=== PATIENT | female | born 1960 | race Asian ===

== ENCOUNTER 2019-05-07 02:13 | Emergency (ER) | payer OTHER ==
[~2019-05-07] VITALS: Ht 157.5 cm; Wt 59.5 kg
[2019-05-07 02:19] VITALS: BP 135/76
--- NOTE | 2019-05-07 02:45 | NUR ---
59 Y/O FEMALE PRESENTS TO ED, C/O OF GENERAL BODY RASH. PT STATES HAVING RASH "A COUPLE OF HOURS" PASTRY COOK APPRENTICE. PT DENIES ANY ALLERGIES. RASH PRESENTS ON ARMS AND TORSO. C/O OF SEVERE ITCHING. NO SKIN BREAKDOWN. DENIES ANY SOB. PT VSS. ERMD AWARE. WILL CONTINUE TO MONITOR.
--- NOTE | 2019-05-07 03:30 | NUR ---
PT AWAKE, LAYING ON BED. C/O MILD ITCHING ON ARMS AND TORSO. PT VSS. [facility]ONT CONTINUE TO MONITOR.
[2019-05-07] MEDS: methylPREDNISolone SS 125 MG in WATER STERILE 2 ML IM ONE (03:34)
[2019-05-07] MEDS: FAMOTIDINE 20 MG TAB PO ONE (03:35)
[2019-05-07] MEDS: diphenhydrAMINE 50 MG CAP PO ONE (03:36)
[2019-05-07 04:35] VITALS: BP 129/66
--- NOTE | 2019-05-07 04:42 | NUR ---
PT DISCHARGED WITH PAPERWORK. RX BENADRYL, PEDNISONE. EDUCATED PT REGARDING MEDICATION AND S/E. EDUCATED PT REGARDING D/C DIAGNOSIS AND INSTRUCTIONS. PT VERBALIZED UNDERSTANDING OF TEACHING. TOLD PT TO FOLLOW UP WITH PCP AND WHEN TO RETURN TO ED. PT VSS. DENIES ANY ITCHING. NO SOB. ALL QUESTIONS ANSWERED.
== END 2019-05-07 04:35 | disposition home or self-care (01) ==
LOC: MED 02:13
DX: R21 Rash and other nonspecific skin eruption (principal)
CPT/HCPCS: 96372; 99283; J2930; Q0163

== ENCOUNTER 2019-11-17 09:31 | Inpatient (IN) | payer OTHER ==
[~2019-11-17] VITALS: Ht 157.5 cm; Wt 54.0 kg
[2019-11-17 09:32] VITALS: BP 127/72
[2019-11-17 10:35] LABS: BASOPHILS # (AUTO) 0.1 K/uL (0.00-0.22); BASOPHILS % (AUTO) 1.6 % (0.0-2.0); EOSINOPHILS # (AUTO) 0.3 K/uL (0-0.4); EOSINOPHILS % (AUTO) 7.7 % (0.0-4.0); HEMATOCRIT 39.6 % (36-48); HEMOGLOBIN 13.2 g/dL (12.0-16.0); LYMPHOCYTES # (AUTO) 1.1 K/uL (2.5-16.5); LYMPHOCYTES % (AUTO) 27.4 % (20.5-51.1); MEAN CORPUSCULAR HEMOGLOBIN 30 pg (27-31); MEAN CORPUSCULAR HGB CONC 33 g/dL (33-37); MEAN CORPUSCULAR VOLUME 91.4 fL (80-94); MONOCYTES # (AUTO) 0.4 K/uL (0.8-1.0); MONOCYTES % (AUTO) 11.2 % (1.7-9.3); NEUTROPHILS # (AUTO) 2.1 K/uL (1.8-7.7); NEUTROPHILS % (AUTO) 52.1 % (42.2-75.2); PLATELET COUNT (AUTO) 179 K/uL (140-450); RED BLOOD CELL COUNT(AUTO) 4.34 MIL/uL (4.20-5.40); RED CELL DISTRIBUTION WIDTH 13.9 % (11.6-13.7)
[2019-11-17 10:49] LABS: ALBUMIN 3.7 g/dL (3.4-5.0); ANION GAP 12.9 (8-16); CARBON DIOXIDE 28.6 mmol/L (21-32); CREATININE 0.7 mg/dL (0.6-1.3); POTASSIUM 3.5 mmol/L (3.5-5.1); TOTAL BILIRUBIN 0.4 mg/dL (0.0-1.0)
[2019-11-17] MEDS ORDERED: MORPHINE SULFATE 2 MG/ML SYR IVP ONE (11:10)
[2019-11-17] MEDS ORDERED: NITROGLYCERIN 2% 1 GM PKT TP ONE (11:10)
[2019-11-17] MEDS ORDERED: ASPIRIN 81 MG TAB.CHEW PO ONE (11:10)
[2019-11-17] MEDS ORDERED: ACETAMINOPHEN 325 MG TAB PO PRN (11:35)
[2019-11-17] MEDS ORDERED: HEPARIN PER PHARMACY MC PRN (11:35)
[2019-11-17] MEDS ORDERED: ONDANSETRON 4 MG/2 ML VIAL IVP PRN (11:35)
[2019-11-17] MEDS ORDERED: MORPHINE SULFATE 4 MG/ML SYR IVP PRN (11:35)
[2019-11-17] MEDS ORDERED: hePARIN / DEXT 5% PREMIX 250 ML IV SCH ×2 (11:35→12:05)
[2019-11-17] MEDS ORDERED: ALBUTEROL 0.083% 2.5 MG/3 ML NEBU INH PRN (11:35)
[2019-11-17] MEDS ORDERED: HYDROcodone/APAP 5/325 MG 1 TAB TAB PO PRN (11:35)
[2019-11-17 11:41] LABS: PROTHROMBIN TIME 10.4 secs (10.8-13.4)
[2019-11-17] MEDS ORDERED: CALC500T19 PO (11:42)
[2019-11-17] MEDS ORDERED: LOSA50TA66 PO (11:43)
[2019-11-17] MEDS ORDERED: LOSA25TA43 PO (11:43)
[2019-11-17] MEDS ORDERED: [UNRECOGNIZED DRUG - CODE] PO (11:46)
[2019-11-17 12:23] VITALS: BP 129/87
[2019-11-17] MEDS ORDERED: KCL 20 MEQ/WATER INJ PREMIX 200 ML IV SCH (12:30)
[2019-11-17] MEDS ORDERED: POTASSIUM CHLORIDE 40 MEQ, LIDOCAINE MPF 1% 25 MG in NACL 0.9% 250 ML IV SCH (14:30)
[2019-11-17 16:00] VITALS: BP 107/73
[2019-11-17 20:00] VITALS: BP 97/60
[2019-11-18] VITALS: BP 120/76
[2019-11-18 04:00] VITALS: BP 128/76
[2019-11-18 07:41] LABS: MAGNESIUM 1.9 mg/dL (1.8-2.4); PHOSPHORUS 3.1 mg/dL (2.5-4.9)
[2019-11-18 07:42] LABS: CARBON DIOXIDE 29.2 mmol/L (21-32); CREATININE 0.7 mg/dL (0.6-1.3); POTASSIUM 4.2 mmol/L (3.5-5.1)
[2019-11-18 07:47] LABS: BASOPHILS % (AUTO) 1.1 % (0.0-2.0); EOSINOPHILS # (AUTO) 0.3 K/uL (0-0.4); EOSINOPHILS % (AUTO) 6.7 % (0.0-4.0); HEMATOCRIT 38.9 % (36-48); HEMOGLOBIN 12.8 g/dL (12.0-16.0); LYMPHOCYTES # (AUTO) 1.2 K/uL (2.5-16.5); LYMPHOCYTES % (AUTO) 29.9 % (20.5-51.1); MEAN CORPUSCULAR HEMOGLOBIN 30 pg (27-31); MEAN CORPUSCULAR HGB CONC 33 g/dL (33-37); MEAN CORPUSCULAR VOLUME 91.9 fL (80-94); MONOCYTES # (AUTO) 0.4 K/uL (0.8-1.0); MONOCYTES % (AUTO) 9.2 % (1.7-9.3); NEUTROPHILS # (AUTO) 2.2 K/uL (1.8-7.7); NEUTROPHILS % (AUTO) 53.1 % (42.2-75.2); PLATELET COUNT (AUTO) 177 K/uL (140-450); RED BLOOD CELL COUNT(AUTO) 4.24 MIL/uL (4.20-5.40); WHITE BLOOD COUNT (AUTO) 4.1 K/uL (4.8-10.8)
[2019-11-18 07:52] VITALS: BP 128/70
[2019-11-18] MEDS ORDERED: LOSARTAN 50 MG TAB PO SCH (09:00)
[2019-11-18] MEDS ORDERED: ATORVASTATIN 20 MG TAB PO SCH (09:00)
[2019-11-18] MEDS ORDERED: ASPIRIN 81 MG TAB.CHEW PO SCH (09:00)
[2019-11-18 11:54] VITALS: BP 143/71
[2019-11-18] MEDS ORDERED: INFLUENZA VACCINE QUAD 0.5 ML SYR IMVAC PRN (13:15)
== END 2019-11-18 14:00 | disposition home or self-care (01) | DRG 190 ==
LOC: MED 09:31 → MTU 11:31
PROVIDERS: ADMIT Internal Medicine Pulmonary Disease; ATTEND Internal Medicine Pulmonary Disease
DX: I21.A1 Myocardial infarction type 2 (principal); I11.9 Hypertensive heart disease without heart failure; E78.00 Pure hypercholesterolemia, unspecified; E78.5 Hyperlipidemia, unspecified; Z79.899 Other long term (current) drug therapy; Z23 Encounter for immunization
CPT/HCPCS: 36415; 71045; 80048; 80053; 83735; 83880; 84100; 84484; 85025; 85610; 85730; 87081; 93005; 96374; 99285; J1644; J2001; J2270; J3480; J7030; Q0092

== ENCOUNTER 2020-06-26 06:40 | Emergency (ER) | payer OTHER ==
[~2020-06-26] VITALS: Ht 157.5 cm; Wt 59.0 kg
[~2020-06-26 06:40] MED LIST: CALC500T19 PO; LOSA50TA66 PO; [UNRECOGNIZED DRUG - CODE] PO
[2020-06-26 06:46] VITALS: BP 169/89
[2020-06-26 07:26] VITALS: BP 169/89
== END 2020-06-26 07:27 | disposition home or self-care (01) ==
LOC: MED 06:40
DX: B02.9 Zoster without complications (principal); I10 Essential (primary) hypertension; I51.89 Other ill-defined heart diseases; Z79.899 Other long term (current) drug therapy
CPT/HCPCS: 81002; 81025; 99283

== ENCOUNTER 2020-07-16 06:30 | Emergency (ER) | payer OTHER ==
[~2020-07-16] VITALS: Ht 157.5 cm; Wt 59.0 kg
[2020-07-16 06:39] VITALS: BP 179/102
--- NOTE | 2020-07-16 06:44 | NUR ---
PT TKAEN TO BED 11 WITH STEADY GAIT
--- NOTE | 2020-07-16 06:50 | NUR ---
60 y/o female presented to the ED c/o itching since 0200 this morning, generalized rash noted throughout her body, pt denies difficulty breathing, pt denies N/V, pt denies diarrhea and fever. pt is not in any acute distress at this time. PT DENIES PAIN. PMH: ELEVATED CHOLESTEROL, SHINGLES 2 WKS AGO, HTN NKA
--- NOTE | 2020-07-16 06:55 | NUR ---
JULI TSANG MADE AWARE OF GENERLIZED RASH
[2020-07-16] MEDS ORDERED: diphenhydrAMINE 50 MG CAP PO ONE (07:05)
--- NOTE | 2020-07-16 07:06 | NUR ---
JULI TSANG AT BEDSIDE FOR MEDICAL EVALUATION
[2020-07-16 07:44] VITALS: BP 179/102
--- NOTE | 2020-07-16 07:46 | NUR ---
Patient discharged with v/s stable. Written and verbal after care instructions given and explained. Patient alert, oriented and verbalized understanding of instructions. Ambulatory with steady gait. All questions addressed prior to discharge. ID band removed. Patient advised to follow up with PMD. Rx of PREDNISONE AND BENADRYL given. Patient educated on indication of medication including possible reaction and side effects. Opportunity to ask questions provided and answered.
== END 2020-07-16 07:46 | disposition home or self-care (01) ==
LOC: MED 06:30
DX: R21 Rash and other nonspecific skin eruption (principal); I10 Essential (primary) hypertension; I51.89 Other ill-defined heart diseases; Z79.899 Other long term (current) drug therapy
CPT/HCPCS: 99282; Q0163; C1758

== ENCOUNTER 2020-07-19 03:39 | Observation (INO) | payer OTHER ==
[~2020-07-19] VITALS: Ht 157.5 cm; Wt 59.0 kg
[2020-07-19 03:46] VITALS: BP 152/69
[2020-07-19] MEDS ORDERED: ASPIRIN 81 MG TAB.CHEW PO ONE (04:05)
[2020-07-19] MEDS ORDERED: ALBU0.0912 IH (05:33)
[2020-07-19] MEDS ORDERED: ACET-8386 PO (05:33)
[2020-07-19] MEDS ORDERED: ATOR40TA PO (05:33)
[2020-07-19] MEDS ORDERED: MELA5SGL PO (05:33)
[2020-07-19] MEDS ORDERED: DIPH25CA86 PO (05:33)
[2020-07-19] MEDS ORDERED: [UNRECOGNIZED DRUG - CODE] PO (05:33)
[2020-07-19] MEDS ORDERED: GABA300C PO (05:33)
[2020-07-19 05:36] LABS: BASOPHILS % (AUTO) 0.2 % (0.0-2.0); EOSINOPHILS % (AUTO) 0.5 % (0.0-4.0); HEMATOCRIT 40.3 % (36-48); HEMOGLOBIN 13.1 g/dL (12.0-16.0); MEAN CORPUSCULAR HEMOGLOBIN 31 pg (27-31); MEAN CORPUSCULAR HGB CONC 33 g/dL (33-37); MEAN CORPUSCULAR VOLUME 95.7 fL (80-94); MONOCYTES # (AUTO) 0.7 K/uL (0.8-1.0); MONOCYTES % (AUTO) 9.6 % (1.7-9.3); NEUTROPHILS # (AUTO) 4.1 K/uL (1.8-7.7); NEUTROPHILS % (AUTO) 60.7 % (42.2-75.2); PLATELET COUNT (AUTO) 197 K/uL (140-450); RED BLOOD CELL COUNT(AUTO) 4.21 MIL/uL (4.20-5.40); RED CELL DISTRIBUTION WIDTH 15.6 % (11.6-13.7); WHITE BLOOD COUNT (AUTO) 6.8 K/uL (4.8-10.8)
[2020-07-19 06:00] LABS: ANION GAP 11.9 (8-16); CARBON DIOXIDE 30.3 mmol/L (21-32); CREATININE 0.8 mg/dL (0.6-1.3); POTASSIUM 4.2 mmol/L (3.5-5.1)
[2020-07-19] MEDS ORDERED: HYDROcodone/APAP 5/325 MG 1 TAB TAB PO PRN (12:45)
[2020-07-19] MEDS ORDERED: ACETAMINOPHEN 325 MG TAB PO PRN (12:45)
[2020-07-19] MEDS ORDERED: ZOLPIDEM 5 MG TAB PO PRN (12:45)
[2020-07-19] MEDS ORDERED: KCL 20 MEQ/WATER INJ PREMIX 200 ML IV PRN (12:45)
[2020-07-19] MEDS ORDERED: MAG SULF 2000 MG/WATER PREMIX 50 ML IV PRN (12:45)
[2020-07-19] MEDS ORDERED: MAGNESIUM OXIDE 400 MG TAB PO PRN (12:45)
[2020-07-19] MEDS ORDERED: ONDANSETRON 4 MG/2 ML VIAL IVP PRN (12:45)
[2020-07-19] MEDS ORDERED: LORazepam 1 MG TAB PO PRN (12:45)
[2020-07-19] MEDS: ALBUTEROL SULFATE/IPRATROPIU 3 ML SOL IH SCH (14:03)
[2020-07-19] MEDS: LOSARTAN 50 MG TAB PO SCH ×2 (18:36→20:03)
[2020-07-19 20:13] VITALS: BP 146/89
[2020-07-20 00:30] VITALS: BP 139/87
[2020-07-20 04:15] VITALS: BP 127/82
[2020-07-20 06:47] LABS: BASOPHILS % (AUTO) 0.4 % (0.0-2.0); EOSINOPHILS # (AUTO) 0.2 K/uL (0-0.4); EOSINOPHILS % (AUTO) 3.8 % (0.0-4.0); HEMATOCRIT 42.6 % (36-48); HEMOGLOBIN 14.1 g/dL (12.0-16.0); LYMPHOCYTES # (AUTO) 2.2 K/uL (2.5-16.5); LYMPHOCYTES % (AUTO) 43.7 % (20.5-51.1); MEAN CORPUSCULAR HEMOGLOBIN 32 pg (27-31); MEAN CORPUSCULAR HGB CONC 33 g/dL (33-37); MEAN CORPUSCULAR VOLUME 96.6 fL (80-94); MONOCYTES # (AUTO) 0.4 K/uL (0.8-1.0); MONOCYTES % (AUTO) 7.8 % (1.7-9.3); NEUTROPHILS # (AUTO) 2.3 K/uL (1.8-7.7); NEUTROPHILS % (AUTO) 44.3 % (42.2-75.2); PLATELET COUNT (AUTO) 188 K/uL (140-450); RED BLOOD CELL COUNT(AUTO) 4.41 MIL/uL (4.20-5.40); RED CELL DISTRIBUTION WIDTH 16.2 % (11.6-13.7); WHITE BLOOD COUNT (AUTO) 5.1 K/uL (4.8-10.8)
[2020-07-20] MEDS: ALBUTEROL SULFATE/IPRATROPIU 3 ML SOL IH SCH ×2 (07:06→13:00)
[2020-07-20 07:09] LABS: ALBUMIN 3.6 g/dL (3.4-5.0); ANION GAP 10.1 (8-16); CARBON DIOXIDE 32.5 mmol/L (21-32); CREATININE 0.7 mg/dL (0.6-1.3); POTASSIUM 4.6 mmol/L (3.5-5.1); TOTAL BILIRUBIN 0.5 mg/dL (0.0-1.0)
[2020-07-20 07:15] LABS: MAGNESIUM 2.2 mg/dL (1.8-2.4)
[2020-07-20 08:00] VITALS: BP 124/70
[2020-07-20] MEDS ORDERED: GABAPENTIN 300 MG CAP PO SCH (09:00)
[2020-07-20] MEDS ORDERED: POTASSIUM CHLORIDE 8 MEQ TABER PO SCH (09:00)
[2020-07-20] MEDS ORDERED: DOCUSATE SODIUM 100 MG GELCAP PO SCH (09:00)
[2020-07-20] MEDS ORDERED: hydroCHLOROthiazide 25 MG TAB PO SCH (09:00)
[2020-07-20] MEDS ORDERED: LOSARTAN 50 MG TAB PO SCH (09:00)
[2020-07-20] MEDS ORDERED: ATORVASTATIN 20 MG TAB PO SCH (09:00)
[2020-07-20] MEDS: LOSARTAN 50 MG TAB PO SCH (09:17)
[2020-07-20] MEDS ORDERED: ASPI81CT95 PO (10:22)
[2020-07-20] MEDS ORDERED: ORE25 PO (10:22)
[2020-07-20] MEDS ORDERED: LOSA50TA1 PO (10:22)
[2020-07-20 12:00] VITALS: BP_SYST 124; BP_SYST 128; BP_DIAS 70; BP_DIAS 85
== END 2020-07-20 13:35 | disposition home or self-care (01) ==
LOC: MED 03:39 → MTU 16:58
PROVIDERS: ADMIT Hospitalist; ATTEND Hospitalist
DX: R07.9 Chest pain, unspecified (principal); Z20.828 Contact with and (suspected) exposure to other viral communicable diseases; I10 Essential (primary) hypertension; E78.5 Hyperlipidemia, unspecified; G47.00 Insomnia, unspecified; G89.29 Other chronic pain; J45.909 Unspecified asthma, uncomplicated; M19.90 Unspecified osteoarthritis, unspecified site; G62.9 Polyneuropathy, unspecified; Z79.899 Other long term (current) drug therapy
CPT/HCPCS: 36415; 71045; 80048; 80053; 83036; 83735; 83880; 84484; 85025; 87081; 93005; 93017; 94640; 99291; G0378; Q0163